=== PATIENT | male | born 2000 | race Caucasian/White ===

== ENCOUNTER 2020-07-25 16:20 | Emergency (ER) | payer OTHER, SELFPAY ==
[2012-12-12 17:56] VITALS: O2SAT 99
[2020-07-25 16:23] VITALS: BP 138/76; PULSE 111; RESP 20; TEMP 36.4; O2SAT 97
--- NOTE | 2020-07-25 16:48 | W.ED.GENAD ---
Discharge Plan Disposition Patient Disposition: HOME Condition: Stable Discharge Details Clinical Impression: Nausea & vomiting, Abdominal pain Primary Care Provider: Carlos Grimaldo ED Provider: Saranya Bailey Home Meds and New Rx's Prescriptions: New ondansetron 4 mg tablet,disintegrating 4 mg PO Q6H PRN (Reason: nausea and vomiting) Qty: 10 RF: 0 Continued multivitamin Tablet 1 tab PO DAILY RF: 0 ascorbic acid (vitamin C) [Vitamin C] 500 mg Tablet 500 mg PO DAILY RF: 0 lysine 500 mg Tablet 500 mg PO DAILY RF: 0 omega-3 fatty acids-vitamin E 1,000 mg Capsule 1 cap PO DAILY RF: 0 Discharge Instructions Instructions: Ondansetron (By mouth), Acute Nausea and Vomiting (ED), Abdominal Pain (ED) Additional Instructions: Imaging and labs are reassuring. I am concerned that this is infectious source. Please continue to encourage hydration. You may use the Zofran as prescribed to help with any recurrence of your nausea or vomiting. Please follow-up with primary care in 1 week for reevaluation. If you develop fever/chills, increased pain, inability stay hydrated or other new/worsening symptoms please seek care urgently once again. COVID-19 testing is pending. Please continue to quarantine until these results are back. Referrals: Carlos Grimaldo MD [Primary Care Provider] - Discharge Data Discharge Date/Time-TO BE ENTERED AT DEPARTURE: 07/25/20 20:08 Medical Decision Making Patient is a pleasant 20-year-old male presents today with chief complaint of abdominal pain. He reports that 6:00 this morning, shortly after waking up, he developed a sudden onset of abdominal pain that progressively worsened throughout the course of the day. He indicates the right upper quadrant and epigastric region as area of maximal discomfort. Reports that he has had 10 loose stools today. All nonbloody. He has vomited x3. Denies any fevers. No change in urination. Denies any pain radiating to his back. He is not experiencing like this historically. No past medical history. Denies any significant family medical history. He is not been able to tolerate any p.o. intake. On exam, patient appears nontoxic. Lungs are clear, normal cardiac exam. He is exquisitely tender in the right upper quadrant epigastric region. Also has some lesser pain in the left side of his abdomen. He denies any alcohol intake. 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 Unable to obtain ultrasound based on time of day. Will obtain CBC. Considered gastroenteritis, ulcer, cholecystitis. He has no pain over McBurney's point. Denies any testicular pain. Did not have any CVA tenderness or evidence to suggest stone. Will give IV acetaminophen and Zofran to help with symptomatic management. Plan to hydrate the patient. Patient reports feeling improved after hydration, IV acetaminophen and Zofran. Labs reviewed. Leukocytosis a white count of 12.5. Stable H&H. CMP significant for elevated BUN of 22. Alk phos 120. Otherwise within normal limits. Patient does have ketones in his urine but no evidence of infection. CT reviewed by radiologist: FINDINGS: Liver: Normal. No mass. Gallbladder and bile ducts: Normal. No calcified stones. No ductal dilation. Pancreas: Normal. No ductal dilation. Spleen: Normal. No splenomegaly. Adrenal glands: Normal. No mass. Kidneys and ureters: No renal or ureteral stones are identified. There is no hydronephrosis or hydroureter. Stomach and bowel: There is no evidence of small or large bowel inflammation. There is no evidence for bowel obstruction. Appendix: The appendix is visualized and appears normal. Intraperitoneal space: Unremarkable. No free air. No significant fluid collection. Vasculature: Unremarkable. No abdominal aortic aneurysm. Lymph nodes: Unremarkable. No enlarged lymph nodes. Urinary bladder: No bladder stones are identified. Reproductive: Unremarkable as visualized. Bones/joints: There is mild anterior wedging of a few lower thoracic vertebra which appears chronic. Soft tissues: Unremarkable. IMPRESSION: No acute process within the abdomen or pelvis identified. Discussed the findings with the patient. Patient nausea, vomiting, diarrhea, leukocytosis point towards infectious etiology. No evidence of surgical pathology in his abdomen at this time. Patient is feeling improved. Will continue on Zofran as needed for any recurrence of his nausea or vomiting. Encourage gentle hydration. Advise close follow-up with primary care. Return precautions were discussed. Patient is a teacher. No GI symptoms, as well as school exposure, will obtain COVID-19 testing although I find this highly unlikely. Patient will quarantine until these results are back. All of his questions or concerns were addressed and he is in agreement this plan HPI General Mode of arrival: ambulatory. Date/Time Provider Initiated Documentation: 07/25/20 16:21. Limitations to Documentation: no limitations. Information obtained by: patient and RN notes reviewed. History of Present Illness 20 year old M presents to the emergency department with the chief complaint of abdominal pain, N/V/D, described as moderate, with intensity rated at 8. Quality is described as aching, and is localized to the abdomen. Patient reports no radiation. Patient started experiencing this hour(s) (0600) and it has been constant. No relieving factors improve symptom(s), No exacerbating factors reported . Patient notes loss of appetite and nausea/vomiting; denies chest pain, cough, diaphoresis, fever/chills, rash, shortness of breath and weakness. Patient did receive the following treatments prior to arrival, none Related Data Home Medications Medication Instructions Recorded Confirmed ascorbic acid (vitamin C) [Vitamin 500 mg PO DAILY 07/25/20 07/25/20 C] lysine 500 mg PO DAILY 07/25/20 07/25/20 multivitamin 1 tab PO DAILY 07/25/20 07/25/20 omega-3 fatty acids-vitamin E 1 cap PO DAILY 07/25/20 07/25/20 ondansetron 4 mg PO Q6H PRN #10 tab 07/25/20 Previous Rx's Medication Instructions Recorded ondansetron 4 mg PO Q6H PRN #10 tab 07/25/20 Allergies Allergy/AdvReac Type Severity Reaction Status Date / Time No Known Drug Allergies Allergy Unverified 07/25/20 16:25 General Stated Complaint: Abd Prob JULIANA: 3 Review of Systems Constitutional Constitutional: Reports as per HPI, Denies chills, Denies fatigue, Denies fever(s) and Denies headache(s) ENT Ears, Nose, Mouth, and Throat: Denies headache(s) Cardiovascular Cardiovascular: Reports as per HPI, Denies chest pain and Denies dyspnea Respiratory Respiratory: Reports as per HPI, Denies cough and Denies dyspnea Gastrointestinal Gastrointestinal: Reports as per HPI Genitourinary Genitourinary: Denies system reviewed and no additional complaints, except as documented (patient denies any change in urinary habits) Musculoskeletal Musculoskeletal: Reports as per HPI and Denies back pain Integumentary/Breasts Skin/Breast: Reports as per HPI and Denies rash Neurologic Neurologic: Reports as per HPI and Denies headache(s) Endocrine Endocrine: Denies fatigue [facility] Medical History (Updated 07/25/20 @ 19:56 by MELISSA Napoles) Acne History of environmental allergies Had allergy shots and no longer a problem Surgical History Circumcision Tonsillectomy Family History Mother No problems noted. Sister No problems noted. Social History Smoking/Tobacco Use Status: Never Smoking risk assessment performed?: Yes Alcohol Intake: never Drug use: Never Substance use type: does not use Do you feel safe at home: Yes Do you feel safe in your relationship?: Yes Exam Const General: cooperative, healthy appearing, comfortable, no acute distress and well developed Nutritional Appearance: average body habitus and well nourished Orientation: alert and awake HENMT Head: normal to inspection Mouth: moist mucous membranes Resp Effort & Inspection: normal respiratory effort, able to speak in complete sentences and no respiratory distress Auscultation: clear to auscultation bilaterally, no rales, no rhonchi and no wheezes Cardio Rate: regular rate Rhythm: regular rhythm Heart Sounds: S1 normal and S2 normal GI Inspection: normal to inspection Palpation: soft, no hepatosplenomegaly, not firm, no guarding, not rigid and tender in the epigastrum and in the RUQ; not at McBurney's point, Bautista's sign negative and with no rebound tenderness Percussion: normal to percussion Auscultation: normal bowel sounds Back/Spine/Pelvis Back: no CVA tenderness Skin General skin exam: no rashes or lesions noted Trauma: no lacerations or abrasions Neuro General: patient alert and patient awake Cognition: normal cognition Speech: speech normal Gait: normal gait Psych Appearance: grossly normal and well kempt Mental Status: mental status grossly normal Speech and Movement: speech and movement normal Course Vital Signs Vital signs: Vital Signs Temperature 36.4 C L 07/25/20 16:23 Pulse 111 H 07/25/20 16:23 Respiratory Rate 20 07/25/20 16:23 Blood Pressure 138/76 07/25/20 16:23 Pulse Oximetry 97 07/25/20 16:23 Temperature 36.4 C L 07/25/20 16:23 Temperature Source Skin 07/25/20 16:23 Pulse 111 H 07/25/20 16:23 Respiratory Rate 20 07/25/20 16:23 Respiratory Effort Non-Labored 07/25/20 16:27 Blood Pressure 138/76 07/25/20 16:23 Blood Pressure Position Sitting 07/25/20 16:23 Pulse Oximetry 97 07/25/20 16:23 Oxygen Delivery Method Room Air 07/25/20 16:23 Oxygen Flow Rate 0 07/25/20 16:23 Pain Level 8 07/25/20 16:23
--- NOTE | 2020-07-25 17:00 | DI.CT_ITS ---
EXAM: CT ABDOMEN PELVIS W CLINICAL HISTORY: epigastric, RUQ pain TECHNIQUE: COMPARISON: No exams were available for comparison FINDINGS: CT examination of the abdomen and pelvis was performed with bolus infusion of 100 cc of Omnipaque 350 . Images obtained through the lung bases are unremarkable. There is mild gastric distention, nonspecific. The liver appears normal with no evidence of a focal mass. Spleen is unremarkable in appearance.. Gallbladder and bile ducts are unremarkable. Pancreas is unremarkable in appearance. Adrenals appear normal bilaterally. Kidneys appear normal with no evidence of renal mass, hydronephrosis, or nephrolithiasis There is no evidence of abdominal or pelvic adenopathy. Abdominal aorta is of normal diameter and no major vascular abnormality is seen. Appendix is normal. No evidence diverticulitis or bowel obstruction. No significant abdominal wall hernia seen. Impression: Mild gastric distension. No specific findings. Please correlate clinically. RADIATION DOSE DELIVERED: 665.87mGy.cm Total DLP 665.87mGy.cm Total DLP DATA REPOSITORY: All CT scans at this facility are submitted to the National Radiology Data Registry (NRDR) Dose Index Registry (DIR) with the [employer] ([employer]). RADIATION OPTIMIZATION: All CT scans at this facility use at least one of these dose optimization te chniques: automated exposure control; mA and/or kV adjustment per patient size (includes targeted exa ms where dose is matched to clinical indication); or iterative reconstruction.
[2020-07-25 17:33] LABS: Abs Immature Grans 0.05 10^3/uL (0.0-0.06); Absolute Basophil Count 0.04 10^3/uL (0.0-0.2); Absolute Eosinophil Count 0.04 10^3/uL (0.0-0.7); Absolute Lymphocyte Count 0.92 10^3/uL (1.2-3.4); Basophils % 0.3; Eosinophils % 0.3; Immature Grans % 0.4; Lymphocytes % 7.3; MCH 29.7 pg (27.0-33.0); MCHC 34.3 % (32.0-36.0); MCV 86.7 fL (80-95); MPV 9.8 fL (8.0-11.0); Monocytes % 7.5; Neutrophils % 84.2; Nucleated RBC 0 %; Platelet Count 359 10^3/uL (130-400); RBC 5.79 10^6/uL (4.36-5.78); RDW 11.8 % (11.8-14.1); RDW-SD 37.6 fL; WBC 12.59 10^3/uL (4.4-10.8)
[2020-07-25 17:36] LABS: Absolute Monocyte Count 0.94 10^3/uL (0.1-0.8)
[2020-07-25 17:37] LABS: HCT 50.2 % (40.0-50.0); HGB 17.2 g/dL (13.5-17.5)
[2020-07-25] MEDS: ACETAMINOPHEN 1,000 MG/100 ML BTL 400 MG IVPB (17:40)
[2020-07-25] MEDS: Lactated Ringers 1,000 ML 1000 ML IV (17:40)
[2020-07-25] MEDS: Ondansetron 4 MG/2 ML VIAL IVP (17:40)
[2020-07-25 17:46] LABS: ALT 36 U/L (16-63); AST 28 U/L (15-37); Albumin 4.7 g/dL (3.4-5.0); Alkaline Phosphatase 120 U/L (46-116); Anion Gap 10.9 mmol/L (3-11); BUN 22 mg/dL (7-18); Bilirubin, Total 0.8 mg/dL (0.2-1.0); CO2 27.1 mmol/L (21.0-32.0); CREATININE 1.2 mg/dL (0.70-1.30); Calcium 9.9 mg/dL (8.5-10.1); Chloride 103 mmol/L (98-107); Glucose 108 mg/dL (74-106); Lipase 102 U/L (73-393); Magnesium 1.8 mg/dL (1.8-2.4); Potassium 3.7 mmol/L (3.5-5.1); Sodium 141 mmol/L (136-145); Total Protein 8.5 g/dL (6.4-8.2)
[2020-07-25] MEDS: Omnipaque 350 MG/ML 100 ML BTL IJ (18:23)
[2020-07-25] MEDS: Normal Saline - Diluent 50 ML VIAL IV (18:25)
--- NOTE | 2020-07-25 19:19 | DI.VRAD_ITS ---
PROCEDURE INFORMATION: Exam: CT Abdomen And Pelvis With Contrast Exam date and time: 07/25/2020 6:21 PM Age: 20 years old Clinical indication: Abdominal pain TECHNIQUE: Imaging protocol: Computed tomography of the abdomen and pelvis with contrast. COMPARISON: No relevant prior studies available. FINDINGS: Liver: Normal. No mass. Gallbladder and bile ducts: Normal. No calcified stones. No ductal dilation. Pancreas: Normal. No ductal dilation. Spleen: Normal. No splenomegaly. Adrenal glands: Normal. No mass. Kidneys and ureters: No renal or ureteral stones are identified. There is no hydronephrosis or hydroureter. Stomach and bowel: There is no evidence of small or large bowel inflammation. There is no evidence for bowel obstruction. Appendix: The appendix is visualized and appears normal. Intraperitoneal space: Unremarkable. No free air. No significant fluid collection. Vasculature: Unremarkable. No abdominal aortic aneurysm. Lymph nodes: Unremarkable. No enlarged lymph nodes. Urinary bladder: No bladder stones are identified. Reproductive: Unremarkable as visualized. Bones/joints: There is mild anterior wedging of a few lower thoracic vertebra which appears chronic. Soft tissues: Unremarkable. IMPRESSION: No acute process within the abdomen or pelvis identified. Dictated and Authenticated by: Lucas López MD. Ordering:MIGUEL Beaver MD
[2020-07-25 19:40] LABS: Bilirubin Negative (Negative); Blood Negative (Negative); Clarity Clear (Clear); Glucose Negative (Negative); Ketones 15 mg/dL (Negative); Leukocyte Esterase Negative (Negative); Nitrite Negative (Negative); Urobilinogen 0.2 EU/dL (Up TO 0.2); pH 5.5 (5-8)
[2020-07-25 19:48] LABS: Bacteria Negative HPF (Negative); C & S Indicated? No; Casts Negative LPF (Negative); Crystals Negative HPF (Negative); Epithelial Cells Rare HPF (Negative); Mucus Negative (Negative); RBC 0-2 HPF (0-2); WBC 0-2 HPF (0-5)
[2020-07-25 20:06] VITALS: BP 138/76; PULSE 98; RESP 20; TEMP 36.4; O2SAT 97
[2020-07-27 12:53] LABS: COVID-19 RT-PCR UVMMC Result Negative (Negative)
--- NOTE | 2020-07-27 17:37 | NUR.NOTE ---
called both numbers listed, one straight to voicemail, one rang then to voicemail. Message left to please call back
--- NOTE | 2020-08-01 08:35 | NUR.NOTE ---
Pt given covid results.
--- NOTE | 2020-08-03 10:17 | NUR.NOTE ---
08/03/20 1015 patient returned call and after verifying his identity, relayed negative covid test results to him.
== END 2020-07-25 20:08 | disposition home or self-care (01) ==
PROVIDERS: Emergency Provider Physician Assistant; PCP Pediatrics
DX: R11.2 Nausea with vomiting, unspecified (principal); R10.11 Right upper quadrant pain; Z20.822 Contact with and (suspected) exposure to COVID-19
CPT/HCPCS: 80053; 83690; 96361; 96374; 96375; 99285; U0003; 74177; 81003; 81015; 83735; 85025; 99284; J0131; J2405; J3490

== ENCOUNTER 2020-07-28 18:12 | Outpatient (REF) | payer OTHER, SELFPAY ==
[2012-12-12 17:56] VITALS: O2SAT 99
[2020-07-28 19:21] LABS: C Diff PCR Negative (Negative)
[2020-07-30 12:56] LABS: Campylobacter PCR Negative (Negative); Salmonella PCR Negative (Negative); Shiga Toxin PCR Negative (Negative); Shigella/Enteroinvasive Ecoli Negative (Negative)
== END 2020-07-28 18:13 | disposition home or self-care (01) ==
LOC: NCHCN 18:12
PROVIDERS: PCP Pediatrics; Visit Provider Pediatrics
DX: R10.9 Unspecified abdominal pain (principal); R19.7 Diarrhea, unspecified
CPT/HCPCS: 87329; 87493; 87505